=== PATIENT | female | born 1995 | race Caucasian/White ===

== ENCOUNTER → 2018-01-18 13:11 | Outpatient (CLI) | payer MEDICAID, SELFPAY ==
[2018-01-18 15:45] LABS: Absolute Lymphocyte Count 2.32 X10^3/ul (0.83-4.51); Absolute Neutrophil Count 5.1 X10^3/uL (2.0-7.7); Basophil# 0.02 X10^3/uL; Basophil% 0.2 % (0-1); Eosinophil# 0.16 X10^3/uL; Eosinophils% 1.9 % (0-5); Hematocrit 42.4 % (37-47); Hemoglobin 13.8 g/dl (12.0-15.0); Lymphocyte # 2.32 X10^3/ul (4.0); Lymphocyte % 27.7 % (19-41); Mean Corp Hgb Conc 32.5 g/gl (32-36); Mean Corpuscular Hgb 30.9 pg (27.0-32.0); Mean Corpuscular Volume 95.1 fL (81-99); Monocyte# 0.81 X10^3/uL; Monocyte% 9.7 % (0-10); Neutrophil # 5.08 X10^3/uL (2.7-7.7); Neutrophil % 60.5 % (47-70); Platelet Count 281 K/mm3 (150-450); RBC Distribution Width CV 12.8 % (11.6-14.6); RBC Distribution Width SD 44.3 fl (35.1-43.9); Red Blood Count 4.46 M/mm3 (4.2-5.4); White Blood Count 8.4 K/mm3 (4.4-11.0)
[2018-01-18 15:50] LABS: POSITIVE COUNT NO; POSITIVE DIFFERENTIAL NO; POSITIVE MORPHOLOGY NO
[2018-01-18 16:19] LABS: ALB/GLOB Ratio 1.2 RATIO (0.9-2.4); AST(SGOT) 17 U/L (15-37); Alanine Aminotransfer ALT/SGPT 36 U/L (13-56); Alkaline Phosphatase 67 U/L (45-117); Anion Gap 8 (5-15); BUN 16 mg/dL (7-18); BUN/Creat Ratio 22.3 RATIO (10-20); Calcium,Total 8.4 mg/dL (8.5-10.1); Chloride 107 mmol/L (98-107); Creatinine, Serum 0.72 mg/dL (0.55-1.02); EST Glomerular Filtration Rate 108 mL/min (>60); Est Glom Filt Rate - Afr Amer 130 mL/min (>60); Globulin 3.4 g/dL (2.2-4.2); Glucose 64 mg/dL (74-106); Potassium 3.8 mmol/L (3.5-5.1); Protein, Total 7.4 g/dL (6.4-8.2); Sodium Level 144 mmol/L (136-145); Thyroid Stim Hormone (TSH) 0.62 uIU/mL (0.358-3.74)
== END ==
DX: R53.83 Other fatigue (principal); F19.10 Other psychoactive substance abuse, uncomplicated; Z79.899 Other long term (current) drug therapy
CPT/HCPCS: 36415; 80053; 84443; 85025

== ENCOUNTER 2019-12-18 12:48 | Emergency (ER) | payer OTHER, MEDICAID, SELFPAY ==
[2019-12-18 12:48] VITALS: BP 113/75; PULSE 75; RESP 16; TEMP 36.4; O2SAT 98; BMI 35.0
[2019-12-18 12:56] VITALS: O2SAT 99
--- NOTE | 2019-12-18 13:01 | RAD_ITS ---
STUDY: X-RAY CHEST REASON FOR EXAM: Female, 24 years old. COUGH, SHORT OF BREATH X 3 DAYS TECHNIQUE: PA and lateral views of the chest. COMPARISON: None. FINDINGS: The lungs are clear and expanded. There is no demonstrated pleural abnormality. Normal size heart. Normal mediastinum and reji. Normal visualized pulmonary arteries. Normal visualized aortic arch and descending thoracic aorta. Normal visualized thoracic spine. Normal visualized ribs, clavicles, and shoulders. There is no demonstrated abnormality of the visualized soft tissue structures of the upper abdomen. RAD/Chest PA and Lateral IMPRESSION: Normal x-ray examination of the chest. Electronically Signed: Gio Dorsey, at 13:45 EDT , Service support ,
--- NOTE | 2019-12-18 13:05 | ED.DCSUM_ITS ---
History of Present Illness Chief Complaint: Cough Detail of Chief Complaint: Also complains of nausea, vomiting diarrhea Informant: Patient Onset: Days - Onset 2 days ago Context: Sudden Onset Timing: Intermittent Quality: Pain with burning sensation Location: Epigastrium Current Severity: Mild Maximum Severity: Moderate Worsened by: The epigastric pain is made worse with eating or drinking anything. Relieved by: The epigastric pain is alleviated with heating pad. Associated Symptoms: No loss of smell or taste, nasal symptoms Narrative: Patient is a 24-year-old woman who works at the [employer] who presents with cough, nausea vomiting diarrhea that started 2 days ago. Cough is nonproductive. She is a smoker. No ill contacts at home. She is unaware of any of the tendons at the [email or web address] at work have been diagnosed with COVID. She denies headache, visual, ocular auditory symptoms. She denies chest pain. She denies leg pain, swelling discoloration. She does report nausea, vomiting diarrhea that started 2 days ago. She has not noted any blood or coffee grounds in the emesis. She denies black or maroon-colored stool. She denies urologic symptoms. She does report muscle aches. She has no other complaints. Prior similar symptoms: No Recent Illness/Hospitalization: No - Past Medical History (1) No significant past medical history Status: Acute Past Medical History - Allergies and Home Meds Allergies/Adverse Reactions: Allergies No Known Allergies Allergy (Verified 12/18/19 12:51) Primary Care Physician: Care Physician,No Primary [Primary Care Provider] - Surgical History: noncontributory Lives: Spouse/ Significant Other, With Family Smoking Status: Current some day smoker Alcohol: Rare Drugs: None Review of Systems General: Reports: Fever, Malaise. Denies: Chills, Subjective, Sweats, Weight loss Eyes: Denies: Visual changes - bilaterally, Blurred Vision - bilaterally ENT: Denies: Bilateral ear pain, Rhinorrhea, Sore throat Cardiovascular: Denies: Chest pain, Palpitations, Heart racing Respiratory: Reports: Dyspnea, Cough, Dyspnea on exertion. Denies: Sputum, Orthopnea, Paroxysmal nocturnal dyspnea Gastrointestinal: Reports: Abdominal pain, Nausea, Vomiting, Diarrhea. Denies: Constipation, Melena, Hematochezia Genitourinary: Denies: Dysuria, Hematuria, Frequency Musculoskeletal: Reports: Myalgias. Denies: Arthralgias, Neck pain, Back pain, Swelling, Extremity Pain, -, - Skin: Denies: Rash, Wounds Neurological: Denies: Headache, Weakness, Numbness Endocrine: Denies: Polyuria, Polydipsia Allergy: Denies: Uticaria, Swelling of the mouth Physical Exam Vital Signs/Narrative: Vital Signs Temp Pulse Resp BP Pulse Ox 12/18/19 12:48 97.5 F L 75 16 113/75 98 General: Well nourished, Well developed, Obese, No Acute Distress Head: Normocephalic, Atraumatic Eyes: Perrl, EOMI. Negative for: Pale conjunctiva, Scleral icterus ENT: No rhinorrhea, TM's clear, Dry mucous membranes Neck: Supple, Nontender, No lymphadenopathy, No JVD Cardiovascular: Regular rate, Regular rhythm, No murmurs, Normal S1, Normal S2 Respiratory: No distress, CTA bilaterally, Chest nontender Abdomen: Soft, Nondistended, Normal bowel sounds, Tender - Tenderness to palpation epigastric area only.. Negative for: Nontender, Guarding, Rebound tenderness, Hyperactive bowel sounds, Hypoactive bowel sounds, Hepatomegaly, Henry's sign Back: Nontender, Normal Inspection. Negative for: CVA tenderness Extremities: Nontender, No edema Skin: Normal color, No rash, No Trauma. Negative for: Cyanosis, Diaphoresis, Jaundice Neurological: Alert, Oriented x3, Cranial nerves II-XII grossly intact, Normal Strength, Normal Sensation, Normal Gait Psychological: Normal affect, Normal Mood Diagnostic/Tx/Re-eval Chest X-Ray - ED: 2 View, Read by ED Physician, Normal, Heart, Mediastinum, Bony Structures, No Acute Disease, - - Piercings noted right and left nipple. X-ray interpreted by me at 1338. 12/18/19 13:01 Chest PA and Lateral [RAD] Stat Laboratory Results 12/18/19 13:08 WBC 10.9 RBC 4.53 Hgb 14.2 Hct 43.0 MCV 94.9 MCH 31.3 MCHC 33.0 RDW Std Deviation 40.2 RDW Coeff of [place] 11.7 Plt Count 277 MPV 10.7 Immature Gran % (Auto) 0.500 Neut % (Auto) 70.5 H Lymph % (Auto) 22.1 [place] % (Auto) 6.0 Eos % (Auto) 0.6 Baso % (Auto) 0.3 Absolute Neuts (auto) 7.7 Absolute Lymphs (auto) 2.41 Nucleated RBC % 0 Basic metabolic panel is unremarkable. There is no evidence of acute kidney injury. Since chest x-ray is negative work-up is negative to be discharged to home with suspected COVID infection home-going sheets. She was asked to self quarantine until her results are known. - Medical Decision Making She has respiratory symptoms. With complaints of nausea, vomiting diarrhea this may represent viral illness. Will test for COVID. Chest x-ray was obtained to evaluate for pneumonia. Since clinically she is dehydrated she received 1 L of normal saline and received Zofran for her nausea. ED Disposition - Plan for ED Patient: Disposition: Home or Assisted Living Diagnosis: Suspected 2019 novel coronavirus infection, Abdominal pain, vomiting, and diarrhea, Mild dehydration Instructions: ED Upper Resp Infec No Abx Tx, ED Vomiting and Diarrhea Nonspecific Adult Referrals: Care Physician,No Primary [Primary Care Provider] - Jonathan Blas DO [STAFF PHYSICIAN] - 10-14 Days if not better Additional Instructions: Self quarantine until you are COVID test is known.
[2019-12-18] MEDS: 0.9% Normal Saline 1,000 ML 1000 ML IV (13:17)
[2019-12-18] MEDS: Ondansetron 4 MG/2 ML Vial IV (13:18)
[2019-12-18] MEDS: Mag Hydrox/Al Hydrox/Simeth 30 ML UDC PO (13:19)
[2019-12-18 13:32] LABS: Absolute Lymphocyte Count 2.41 X10^3/uL (0.83-4.51); Absolute Neutrophil Count 7.7 X10^3/uL (2.0-7.7); Basophil# 0.03 X10^3/uL; Basophil% 0.3 % (0-1); Eosinophil# 0.06 X10^3/uL; Eosinophils% 0.6 % (0-5); Hemoglobin 14.2 g/dL (12.0-15.0); Lymphocyte # 2.41 X10^3/ul (4.0); Lymphocyte % 22.1 % (19-41); Mean Corpuscular Hgb 31.3 pg (27.0-32.0); Mean Corpuscular Volume 94.9 fL (81-99); Mean Platelet Vol. 10.7 fl (6.2-12.0); Monocyte# 0.65 X10^3/uL; NRBC Flagged by Analyzer 0 % (0-5); Neutrophil # 7.69 X10^3/uL (2.7-7.7); Neutrophil % 70.5 % (47-70); Platelet Count 277 K/mm3 (150-450); RBC Distribution Width CV 11.7 % (11.6-14.6); RBC Distribution Width SD 40.2 fl (35.1-43.9); Red Blood Count 4.53 M/mm3 (4.2-5.4); White Blood Count 10.9 K/mm3 (4.4-11.0)
[2019-12-18 13:46] LABS: Anion Gap 8 (5-15); BUN 20 mg/dL (7-18); BUN/Creat Ratio 28.7 RATIO (10-20); Calcium,Total 8.7 mg/dL (8.5-10.1); Chloride 107 mmol/L (98-107); EST Glomerular Filtration Rate 110 mL/min (>60); Est Glom Filt Rate - Afr Amer 133 mL/min (>60); Estimated Creatinine Clearance 153.96 ml/min; Glucose 96 mg/dL (74-106); Potassium 4.1 mmol/L (3.5-5.1); Sodium Level 140 mmol/L (136-145)
[2019-12-18 13:59] VITALS: BP 118/93; PULSE 81; RESP 16; O2SAT 97
== END 2019-12-18 14:07 | disposition home or self-care (01) ==
LOC: ED 14:01
PROVIDERS: Emergency Provider Emergency Medicine
DX: E86.0 Dehydration (principal); R10.9 Unspecified abdominal pain; R11.2 Nausea with vomiting, unspecified; R19.7 Diarrhea, unspecified
CPT/HCPCS: 71046; 80048; 85025; 96361; 96374; 99283; J7030; A4216; J2405

== ENCOUNTER 2020-03-25 14:52 | Emergency (ER) | payer MEDICAID, SELFPAY ==
[2020-03-25 14:53] VITALS: BP 121/76; PULSE 72; RESP 16; TEMP 36.6; O2SAT 97; BMI 32.9
--- NOTE | 2020-03-25 15:28 | ED.VIS.GEN ---
History of Present Illness Chief Complaint: Nausea/Vomiting/Diarrhea Informant: Patient Narrative: 24-year-old female with no significant past medical history presents for nausea/vomiting/diarrhea. In addition to this she has had a cough, chills without any fever. She states this is her third day. 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 She denies possibility of as she has I am in a lesbian relationship. Partner and 2 kids do not have any symptoms she denies any vaginal or urinary complaints. She states that she has been able to hold down fluids some but is not able to eat food. Past Medical History - Allergies and Home Meds Allergies/Adverse Reactions: Allergies No Known Allergies Allergy (Verified 03/25/20 14:55) Primary Care Physician: Care Physician,No Primary [Primary Care Provider] - Prior records reviewed: Yes Surgical History: noncontributory Lives: Spouse/ Significant Other Smoking Status: Current every day smoker Alcohol: None Drugs: None Review of Systems General: Reports: Chills Eyes: Denies: Visual changes - bilaterally, Diplopia ENT: Denies: Rhinorrhea, Sore throat Cardiovascular: Denies: Chest pain, Palpitations Respiratory: Reports: Cough Gastrointestinal: Reports: Nausea, Vomiting, Diarrhea Genitourinary: Denies: Dysuria Musculoskeletal: Reports: Myalgias. Denies: Arthralgias Skin: Reports: Rash, Abscess Neurological: Reports: Headache Physical Exam Vital Signs/Narrative: Vital Signs Temp Pulse Resp BP Pulse Ox 03/25/20 14:53 97.8 F 72 16 121/76 H 97 General: Well nourished, No Acute Distress Head: Normocephalic, Atraumatic Eyes: Perrl ENT: Moist mucous membranes Cardiovascular: Regular rate, Regular rhythm Respiratory: No distress, CTA bilaterally Abdomen: Soft, Nondistended, Normal bowel sounds Extremities: Nontender, No edema Skin: Normal color, No rash Neurological: Alert, Oriented x3 Psychological: Normal affect Diagnostic/Tx/Re-eval - Medical Decision Making Seen and examined on arrival. Given her history she was put in COVID?19 precautions. Her exam is fairly unremarkable. We discussed doing lab work and imaging versus symptomatic control and she wished to try symptomatic treatment first. She states she improved after getting Zofran and Pepcid. She feels comfortable to be discharged home. Given her symptoms of chills and body aches as well as nausea and concern for exposure to COVID?19 she will be tested. She is counseled on home quarantine. She is counseled on return precautions. She was given antiemetics for home. Patient is stable for discharge at this time. Impression: 1. Viral syndrome 2. Possible exposure to COVID?19 ED Disposition - Plan for ED Patient: Disposition: Home or Assisted Living Instructions: ED Viral Gastroenteritis Prescriptions: Famotidine [Pepcid] 20 mg PO BID #28 tab Transmission Status: Received by [facility] Ondansetron [Zofran Odt] 4 mg PO Q8H PRN PRN #14 tab PRN Reason: Nausea Transmission Status: Received by [facility] Referrals: Care Physician,No Primary [Primary Care Provider] -
[2020-03-25] MEDS: Famotidine 20 MG Tablet PO (16:44)
[2020-03-25] MEDS: Ondansetron ODT 4 MG Tablet PO (16:44)
[2020-03-25 17:55] VITALS: BP 118/78; PULSE 77; RESP 17; TEMP 36.7; O2SAT 97
== END 2020-03-25 18:09 | disposition home or self-care (01) ==
PROVIDERS: Emergency Provider Student in an Organized Health Care Education/Training Program
DX: B34.9 Viral infection, unspecified (principal); F17.200 Nicotine dependence, unspecified, uncomplicated; Z20.828 Contact with and (suspected) exposure to other viral communicable diseases
CPT/HCPCS: 87635; 99283; U0003

== ENCOUNTER 2020-05-11 14:20 | Emergency (ER) | payer MEDICAID, SELFPAY ==
[2020-05-11 14:20] VITALS: BP 132/76; PULSE 75; RESP 18; TEMP 36.2; O2SAT 99; BMI 34.3
--- NOTE | 2020-05-11 15:10 | RAD_ITS ---
STUDY: X-RAY CHEST REASON FOR EXAM: Female, 24 years old. Cough, shortness of breath TECHNIQUE: Frontal view COMPARISON: 12/18/2019 FINDINGS: The lungs are clear and expanded. There is no demonstrated pleural abnormality. Normal size heart. Normal mediastinum and reji. Normal visualized pulmonary arteries. Normal visualized aortic arch and descending thoracic aorta. Normal visualized thoracic spine. Normal visualized ribs, clavicles, and shoulders. There is no demonstrated abnormality of the visualized soft tissue structures of the upper abdomen. RAD/Chest 1 View (Portable) IMPRESSION: Normal x-ray examination of the chest. Electronically Signed: Srinivas Becker DO at 15:50 EDT Tel [phone], Service support ,
--- NOTE | 2020-05-11 15:57 | ED.VISSUMM ---
- ER Visit Summary Date of Service: 05/11/20 Chief Complaint: Cough History of Present Illness: The patient is a 24 F with no primary care physician. She reports that she has been around her mother's boyfriend who travels for business. He has been ill and was tested for COVID 2 days ago. The results were not back. Patient reports that over the past 2 days she has had a fever to 101 degrees. Chills and cold sweats. She has a cough. She has had mild shortness of breath. She complains of epigastric abdominal pain a 7 on 10 severity. She describes it as sharp and that began yesterday. Is a constant pain. Nothing makes this worse. Is relieved with laying down. She also complains of generalized weakness and fatigue. Physical Examination: Vitals: Stable. Afebrile. General: Well-nourished and well-developed. Head: Normocephalic atraumatic. Neck: Supple, no lymphadenopathy. No JVD. Nontender. Cardiovascular: Regular rate and rhythm. No murmurs. Respiratory: No respiratory distress. Clear to auscultation bilaterally. Abdominal: Soft, mild epigastric tenderness to palpation, nondistended, normal bowel sounds. No guarding, rebound, or peritoneal signs. Back: Nontender. Extremities: Nontender, no edema. Skin: Normal color, no rash. Neurologic: Alert and oriented ?3. Cranial nerves II through XII are intact. Normal strength and sensation. Psych: Normal affect. Test Results: Clinical Impression(s) from Imaging Studies Chest X-Ray 05/11/20 15:10 IMPRESSION: Normal x-ray examination of the chest. Electronically Signed: Srinivas Becker DO at 15:50 EDT Tel [phone], Service support , Emergency Department Course and Treatment: Patient had a COVID-19 test sent. She refused blood work or IV. Treatment Plan: Patient will be discharged with symptomatic care. She is instructed to quarantine. She was given a note for work. Follow-up with Dr. Murray in 10 to 14 days if not improving. Return to the emergency department for any worsening symptoms. Disposition: To home in improved and stable condition. Impression: 1. URI, possible COVID-19 infection. This note was generated with Dragon dictation software. It may contain incorrect words, spelling, and punctuation that were not noted in review of the chart prior to signing ED Disposition - Plan for ED Patient: Disposition: Home or Assisted Living Instructions: ED Upper Resp Infec No Abx Tx Prescriptions: Ondansetron [Zofran Odt] 4 mg PO Q8H PRN PRN #10 tab PRN Reason: Nausea Prescription Printed Referrals: Ernestina Murray DO [STAFF PHYSICIAN] - 10-14 Days if not better
== END 2020-05-11 16:28 | disposition home or self-care (01) ==
LOC: ED 16:09
PROVIDERS: Emergency Provider Emergency Medicine
DX: J06.9 Acute upper respiratory infection, unspecified (principal); Z20.828 Contact with and (suspected) exposure to other viral communicable diseases; R10.13 Epigastric pain; R53.1 Weakness; R53.83 Other fatigue
CPT/HCPCS: 71045; 87635; 99282; U0003

== ENCOUNTER 2020-06-01 05:31 | Emergency (ER) | payer MEDICAID, SELFPAY ==
[2020-06-01 05:32] VITALS: BP 119/77; PULSE 63; RESP 15; TEMP 36.2; O2SAT 94; BMI 35.5
--- NOTE | 2020-06-01 06:05 | ED.VISSUMM ---
- ER Visit Summary Date of Service: 06/01/20 Chief Complaint: Nausea, vomiting, diarrhea, cough, shortness of breath History of Present Illness: The patient is a 24 F who presents with nausea, vomiting, diarrhea, cough, shortness of breath that began yesterday. Patient states she also has pain in her abdomen. Patient states it is diffuse across her abdomen. Patient describes it as sharp. Patient states nothing makes it better or worse. Patient denies any sputum production. Patient did not take her temperature at home but took Tylenol prior to arrival. Patient also admits to some diarrhea. Patient denies any melena or hematochezia. Patient also admits to some pain in her back. Patient denies any known sick contacts however, patient states she did go to a democrat in [place] over the weekend. Physical Examination: Vital signs are stable. Patient is afebrile here. Patient is in no acute distress. Oral mucosa is pink and moist. Neck is supple. Trachea is midline. There is no JVD. Heart was regular rate and rhythm. Lungs are clear and equal bilaterally. Abdomen is soft. Bowel sounds are normal. There is mild diffuse tenderness. There is no rebound or guarding noted. Cranial nerves II through XII are intact. There are no focal motor or sensory deficits. Extremities are intact. There is no calf tenderness or edema. Test Results: CBC and comprehensive metabolic profile were within normal limits. Serum hCG was negative. Chest x-ray does not show any acute cardiopulmonary process. Emergency Department Course and Treatment: Patient was given IV fluids. Patient is feeling better on reevaluation. Patient was instructed to drink plenty of fluids. Patient was instructed to follow-up with her primary care physician in 5 to 7 days. Patient understood and was agreeable with the plan. All questions were answered. Disposition: Discharge home Impression: Viral illness This note was generated with [employer] dictation software. It may contain incorrect words, spelling, and punctuation that were not noted in review of the chart prior to signing ED Disposition - Plan for ED Patient: Disposition: Home or Assisted Living Diagnosis: Viral illness Instructions: ED Viral Syndrome Referrals: Silvino Wong DO [NON CLINICAL AFFILIATE] - 5-7 Days
[2020-06-01 06:27] LABS: Absolute Lymphocyte Count 2.97 X10^3/uL (0.83-4.51); Absolute Neutrophil Count 4.6 X10^3/uL (2.0-7.7); Basophil# 0.03 X10^3/uL; Basophil% 0.4 % (0-1); Eosinophil# 0.18 X10^3/uL; Eosinophils% 2.1 % (0-5); Hematocrit 40.4 % (37-47); Hemoglobin 12.9 g/dL (12.0-15.0); Lymphocyte # 2.97 X10^3/ul (4.0); Lymphocyte % 35.4 % (19-41); Mean Corp Hgb Conc 31.9 g/dL (32-36); Mean Corpuscular Hgb 30.4 pg (27.0-32.0); Mean Corpuscular Volume 95.3 fL (81-99); Mean Platelet Vol. 10.5 fl (6.2-12.0); Monocyte% 7.2 % (0-10); NRBC Flagged by Analyzer 0 % (0-5); Neutrophil # 4.56 X10^3/uL (2.7-7.7); Neutrophil % 54.3 % (47-70); Platelet Count 294 K/mm3 (150-450); RBC Distribution Width CV 12.1 % (11.6-14.6); Red Blood Count 4.24 M/mm3 (4.2-5.4); White Blood Count 8.4 K/mm3 (4.4-11.0)
[2020-06-01] MEDS: 0.9% Normal Saline 1,000 ML 1000 ML IV (06:34)
[2020-06-01] MEDS: Ondansetron 4 MG/2 ML Vial IV (06:34)
[2020-06-01 06:37] LABS: Internal QC Validated? YES +Cl - CLEAR BKGD; Pregnancy, Serum, hCG Quali. NEGATIVE Negative
--- NOTE | 2020-06-01 06:38 | ED.RN ---
iv in left antecubital.
[2020-06-01 06:40] LABS: ALB/GLOB Ratio 1.1 RATIO (0.9-2.4); AST(SGOT) 22 U/L (15-37); Alanine Aminotransfer ALT/SGPT 51 U/L (13-56); Albumin, Serum 3.5 g/dL (3.2-5.0); Alkaline Phosphatase 82 U/L (45-117); Anion Gap 5 (5-15); BUN 18 mg/dL (7-18); BUN/Creat Ratio 22.7 RATIO (10-20); Calcium,Total 8.5 mg/dL (8.5-10.1); Chloride 113 mmol/L (98-107); Creatinine, Serum 0.79 mg/dL (0.55-1.02); EST Glomerular Filtration Rate 94 mL/min (>60); Est Glom Filt Rate - Afr Amer 114 mL/min (>60); Estimated Creatinine Clearance 138.33 ml/min; Globulin 3.2 g/dL (2.2-4.2); Glucose 105 mg/dL (74-106); Protein, Total 6.7 g/dL (6.4-8.2); Sodium Level 143 mmol/L (136-145)
--- NOTE | 2020-06-01 06:40 | RAD_ITS ---
HISTORY: FEVER ADDITIONAL HISTORY: None provided. EXAMINATION/TECHNIQUE: XR Chest 1 View AP/PA Number of images including paperwork: 1 COMPARISON: 03/11/2020 FINDINGS: LUNGS AND PLEURA: No consolidation, mass or pleural effusion. CARDIAC SILHOUETTE: Unremarkable. MEDIASTINUM AND NELLIE: Unremarkable. UPPER ABDOMEN: Unremarkable. SKELETON AND SOFT TISSUES: No acute skeletal findings. OTHER DEVICES AND HARDWARE: Nipple jewelry. RAD/Chest 1 View (Portable) IMPRESSION: No acute cardiopulmonary abnormality. at 0703 Reported and signed by: Terri Dudley MD Electronically Signed: Terri Dudley MD at 7:03 EDT Tel , Service support ,
[2020-06-01 09:44] VITALS: BP 104/78; PULSE 81; RESP 16; O2SAT 97
--- NOTE | 2020-06-01 09:44 | ED.RN ---
THIS NURSE REVIEWED D/C INSTRUCTIONS WITH PT. PT VERBALIZED UNDERSTANDING OF INSTRUCTIONS. IV D/C. IV CATHETER INTACT. PT TOLERATED WELL. PT DENIES FURTHER NEEDS OR QUESTIONS AT THIS TIME. PT AMBULATES FROM ROOM ON OWN WITHOUT ASSISTANCE FROM STAFF
--- NOTE | 2020-06-01 09:48 | ED.RN ---
COVID SWAB SWITCHED TO ANTIGEN OK PER DR ELLSWORTH
== END 2020-06-01 09:46 | disposition home or self-care (01) ==
PROVIDERS: Emergency Provider Emergency Medicine
DX: B34.9 Viral infection, unspecified (principal); M54.9 Dorsalgia, unspecified; R19.7 Diarrhea, unspecified; R11.2 Nausea with vomiting, unspecified; R05 Cough; R10.9 Unspecified abdominal pain; R06.02 Shortness of breath
CPT/HCPCS: 71045; 80053; 84703; 85025; 87426; 96361; 96374; 99283; J7030; A4216; J2405